=== PATIENT | male | born 1985 | race Caucasian/White ===

== ENCOUNTER 2020-02-07 14:30 | Emergency (ER) | payer OTHER, SELFPAY ==
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
[2020-02-07 14:31] VITALS: BP 165/94; PULSE 69; RESP 18; TEMP 36.8; O2SAT 100
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
[2020-02-07] MEDS: KETOROLAC (*BKC) 60 MG/2 ML VIAL IM (15:02)
[2020-02-07 15:55] VITALS: BP 137/87; PULSE 76; RESP 20; O2SAT 99
== END 2020-02-07 15:56 | disposition home or self-care (01) ==
PROVIDERS: Emergency Provider Emergency Medicine
DX: S16.1XXA Strain of muscle, fascia and tendon at neck level, initial encounter (principal); G93.5 Compression of brain; V53.5XXA Driver of pick-up truck or van injured in collision with car, pick-up truck or van in traffic accident, initial encounter
CPT/HCPCS: 70450; 72125; 96372; 99284; J1885

== ENCOUNTER 2024-12-11 20:15 | Emergency (ER) | payer BC, SELFPAY ==
--- NOTE | ~2024-12-11 | XR_ITS ---
XR hip RT 2V w AP pelvis Ordering provider: John Schilling MD History: . hip pain . Comparison: None. FINDINGS: BONES: No acute fracture or dislocation. HIP JOINT SPACES: Normal. SACROILIAC JOINT SPACES/LUMBAR SPINE: The sacroiliac joint spaces are normal. Normal visualized lower lumbar spine. PUBIC SYMPHYSIS: Normal. SOFT TISSUES: Normal. IMPRESSION: No acute osseous abnormality pelvis and right hip. Reviewed, dictated and finalized at location A.
--- OUTSIDE RECORDS SUMMARY | 2024-12-11 20:17 | XMS_ITS | Encounter Summary ---
Author Organization [facility] Address [address] [place] [address] Care Team Providers Care Spoon Maker Name Role Phone Nicky Cox DO, Frederick H Primary Care Provider Encounter Details Date Type Department Care Team (Late st Contact Info) Description 08/14/2021 Refill [facility] - [facility], [facility] [address] [place] [address], [address] [address] Tobias Saunders Jr., DO [address] [facility] [address] [place] [address] Social History Tobacco Use Types Packs/Day Years Used Date Smoking Tobacco: Former Cigarettes Q uit: 03/19/2018 E-Cigarette/Mist Inhalation Device Smokeless Tobacco: Former Chew Comments:Nicotine pouches Alcohol Use Standard Drinks/Week Comments Yes 2 (1 standard drink = 0.6 oz pur e alcohol) Sex and Gender Information Value Date Recorded Sex Assigned at Not on file Legal Sex Male 11:47 PM CDT Gender Identity Not on file Sexual Orientation Not on file COVID-19 Exposure Response Date Recorded In the last month, have you been in contact with someone who was confirmed or suspected to have Coronavirus / COVID-19? No / Unsure 07/25/2021 10:14 AM AGENCY SERVICE COORDINATOR documented as of this encounter Plan of Treatment Upcoming Encounters Date Type Department Care Team (Late st Contact Info) Description 01/13/2025 9:30 AM CDT Office Visit [facility] At [facility] [address] [facility] [facility] [address] [place] [id number] Epi Betancourt MD [address] [place] [address] documented as of this encounter Visit Diagnoses Not on filedocumented in this encounter Care Teams Spoon Maker Relationship Specialty Start Date End Date Tobias Saunders Jr., DO [address] [place] [address] PCP - General Internal Medicine 03/24/18 documented as of this encounter
--- OUTSIDE RECORDS SUMMARY | 2024-12-11 20:17 | XMS_ITS | Clinical Summary ---
Author Organization [facility] Address [address] [place] [address] Care Team Providers Care Lemon Grower Name Role Phone Nicky Cox DO, Frederick Hancock Primary Care Pr ovider Allergies No known active allergies Medications naproxen (NAPROSYN) 500 mg tablet Take 1 tablet (500 mg total) by mouth 2 (two) times a day with meals 20 tablet 12/01/2022 Active Social History Tobacco Use Types Packs/Day Years Used Date Smoking Tobacco: Never Assessed Personal Safety Answer Date Recorded Have you ever been in or are you currently in a harmful physical or emotional relationship or is someone making you feel afraid or unsafe? 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 Gender Identity Male 09/09/2024 10:17 AM CDT Sexual Orientation Straight 09/09/2024 10 :17 AM CDT Obstetrics History Last Filed Vital Signs Vital Sign Reading Time Taken Comments Blood Pressure 141/84 12/01/2022 11:31 AM CDT Pulse 73 12/01/2022 11:31 AM CDT Temperature 37.1 C (98.8 F) 12/01/2022 11:31 AM CDT Respiratory Rate 16 12/01/2022 11:31 AM CDT Oxygen Saturation 97% 12/01/2022 11:31 AM CDT Inhaled Oxygen Concentration - - Weight 136.1 kg (300 lb) 12/01/2022 9:58 AM CDT Height 170.2 cm (5' 7) 12/01/2022 9:58 AM CDT Body Mass Index 46.99 12/01/2022 9:58 AM CDT Plan of Treatment Health Maintenance Due Date Last Done Comments Depression Screening 1986 Hepatitis C Screening 1986 DTaP/Tdap/Td Vaccine (1 - Tdap) 1997 Varicella Vaccines (1 of 2 - 13+ 2-dose series) 09/21/1999 Hepatitis B Screening 2004 Regular Well Visit/Exam 18-64 2004 Covid-19 Vaccine ( season) 2024 05/11/2022, 05/10/2021, 10/22/2020, Additional history exists Influenza Vaccine (Season Ended) 2025 05/11/2022, 05/10/2021, 03/11/2019, Additional history exists HPV Vaccines Aged Out No longer eligi ble based on patient's age to complete this topic Pneumococcal vaccine <65 Aged Out No longer eligible based on patient's age to complete this topic Insurance [employer] CHOICE Care Teams Lemon Grower Relationship Specialty Start Date End Date Tobias Saunders Jr., [address] [facility] [address] [place] [address] PCP - General Internal Medicine 12/01/22
--- OUTSIDE RECORDS SUMMARY | 2024-12-11 20:17 | XMS_ITS | Clinical Summary ---
Author Organization [facility] Address [address] [place] [address] Phone Care Team Providers Care College Physics Instructor Name Role Phone Nicky Cox DO, Frederick H Primary Care Provider Allergies No known active allergies Medications sertraline (ZOLOFT) 50 mg tablet TAKE 1 & 1/2 TABLET BY MOUTH EVERY DAY FOR 90 DAYS Active buPROPion HCL (WELLBUTRIN XL) 150 mg Extended Release 24 hour tablet Take 150 mg by mouth daily in the morning. 02/13/20 24 Active tirzepatide, weight loss, (Zepbound) 5 mg/0.5 mL Pen InjectorIndica tions:Obesity, morbid, BMI 40.0-49.9 (CMS/HCC),BMI 45.0-49.9, adult (CMS/HCC) Inject 5 mg by subcutaneous injection every 7 days. 2 mL 1 4 7:02 PM CDT 03/25/20 24 Active losartan (COZAAR) 100 mg tablet Take 1 Tablet (100 mg) by mouth daily. 100 Tablet 3 05/13/20 24 Active cyclobenzaprin e (FLEXERIL) 10 mg tabletIndicati ons:Acute myofascial strain of lumbar region, initial encounter Take 1 Tablet (10 mg) by mouth daily at bedtime. 30 Tablet 11 05/13/20 24 Active amLODIPine (NORVASC) 5 mg tabletIndicati ons:HTN (hypertension) , benign TAKE 1 TABLET BY MOUTH EVERY DAY 100 Tablet 11/28/19 25 Active amLODIPine (NORVASC) 5 mg tabletIndicati ons:HTN (hypertension) , benign take 1 tablet by mouth every day 100 Tablet 2 02/18/20 24 025 Discontinued Active Problems Patient Care Coordination No te Formatting of this note migh t be different from the original. Epi Betancourt MD--Affirmative Action Officer ([facility] @ ) Problem Noted Date Diagnosed Date Binge eating disorder 03/25/2024 Hyperinsulinemia 03/24/2024 Metabolic syndrome 03/24/2024 Mild dilation of ascending aorta, 4.2 cm 022 Bicuspid aortic valve 06/11/2022 Hyperlipidemia 06/11/2022 Family history of premature CAD 06/11/2022 Prediabetes 04/13/2022 History of chiari 1 malforma tion s/p decompressive surgery (03/2020 w/ Dr Fernandez) 04/13/2022 Family history of bicuspid aortic valve 04/13/20 Family history of aortic aneurysm 04/13/2022 Morbid obesity with BMI of 40.0-44.9, adult 03/02 Family history of thoracic aortic aneurysm 03/24 RUBEN (obstructive sleep apnea) on CPAP 03/24/2018 HTN (hypertension), benign 03/24/2018 Chronic right-sided thoracic back pain 8 Resolved Problems Problem Noted Date Diagnosed Date Resolved Date Chiari I malformation 05/11/20182021 Tobacco use 03/24/2018 07/25/2021 Encounters Date Type Department Care Team Description 12/08/2024 [facility] [place] [address] [place] [address] CarawayDoraa E, ANP HTN (hypertension), benign 12/01/2024 External Device Data STL ABSTRACTION Provider, Abstract 11/27/2024 [facility] [place] [address] [place] [address] CarawayDora naranjoa E, ANP HTN (hypertension), benign 11/20/2024 External Device Data Initial Department [address] GUILLORY: [place] [address] Maksim Barajas Md 11/19/2024 External Device Data STL ABSTRACTION Provider, Abstract 11/19/2024 External Device Data STL ABSTRACTION Provider, Abstract 09/29/2024 External Device Data STL ABSTRACTION Provider, Abstract 09/22/2024 External Device Data STL ABSTRACTION Provider, Abstract 09/22/2024 External Device Data STL ABSTRACTION Provider, Abstract from Last 3 Months Immunizations Immunization Administration Dates Next Due ([employer](12 YR UP) COVID-19 VACCINE - EMERGENCY USE AUTHORIZATION, MRNA, [id number]) 30 MCG/0.3 ML IM SUSP 05/10/2021,10/22/2020,10/01/2020 INFLUENZA VACCINE QUADRIVALE NT 6 MOS UP PF IM 05/10/2021 Influenza Seasonal Unspecifi ed Formulation IM 03/11/2019,03/21/2018 Family History Medical History Relation Name Comments Hypertension Brother Remi Diaz Heart Disease Father Remi Diaz TAA, bicuspid aortic valve, 4V CABG, [place] High Cholesterol Father Remi Diaz Hypertension Father Remi Diaz Cancer Mother Gabrielle Diaz Gallbladder can cer Diabetes Mother Gabrielle Diaz Hypertension Mother Gabrielle Diaz Relation Name Status Comments Brother Remi Diaz Alive Father Remi Diaz Alive Mother Gabrielle Diaz Alive Social History Tobacco Use Types Packs/Day Years Used Date Smoking Tobacco: Former Cigarettes 0.5 2 0 03/19/2016 - 03/19/2018 E-Cigarette/Mist Inhalation Device Smokeless Tobacco: Former Chew Tobacco Cessation:Counseling Given: Not Answered Comments:Nicotine pouches Alcohol Use Standard Drinks/Week Comments Not Currently 0 (1 standard drink = 0.6 oz pur e alcohol) Feeling Safe Answer Date Recorded Are you in a relationship wi th someone who hurts you emotionally and/or physically? No 10/08/2023 Sex and Gender Information Value Date Recorded Sex Assigned at Not on file Legal Sex Male 11:47 PM CDT Gender Identity Not on file Sexual Orientation Not on file Last Filed Vital Signs Vital Sign Reading Time Taken Comments Blood Pressure 130/100 05/13/2024 9:45 AM SALES COMMISSIONS ANALYST Pulse 89 05/13/2024 9:45 AM SALES COMMISSIONS ANALYST Temperature 36.7 C (98 F) 05/13/2024 9:45 AM SALES COMMISSIONS ANALYST Respiratory Rate 17 10/09/2023 12:00 AM CDT Oxygen Saturation 99% 05/13/2024 9:45 AM SALES COMMISSIONS ANALYST Inhaled Oxygen Concentration - - Weight 118.8 kg (262 lb) 05/13/2024 9:45 AM SALES COMMISSIONS ANALYST Height 170.2 cm (5' 7) 05/13/2024 9:45 AM SALES COMMISSIONS ANALYST Body Mass Index 41.04 05/13/2024 9:45 AM SALES COMMISSIONS ANALYST Plan of Treatment Upcoming Encounters Date Type Department Care Team (Late st Contact Info) Description 01/13/2025 9:30 AM CDT Office Visit [facility] Heart and Vascular At [place] [address] [place] [address] Epi Betancourt MD [facility] [address] [facility] [address] [place] [address] Health Maintenance Due Date Last Done Comments DTAP/TDAP/TD VACCINES (1 - Tdap) 2005 HEPATITIS B VACCINES (1 of 3 - 19+ 3-dose series) 2005 INFLUENZA VACCINE (#1) 2024 , 06/05/2023, 05/10/2021, Additional history exists COVID-19 Vaccine ( season) 2024 05/10/2021, 10/22/2020, 10/01/2020 Preventative Visit- Commercial 07/01/2024 07/25/2021, 04/10/2019 Pre-Diabetes and Diabetes Screening 02/25/2027 02/26/2024, 07/25/2021 Abdominal Aortic Aneurysm (AAA) Screening Completed 10/08/2023 HPV VACCINES Aged Out No longer eligi ble based on patient's age to complete this topic Medical Devices Implanted Type [facility] Device Identifier Shelf Expiration Date Model / Serial / Lot Hemostatic Surgiflo 8ml W/Thrombin 2994 - [id number] Implanted:Qty: 1 on 03/16/2020 by Sugar Fernandez MD at [facility] Hemostatic N/A: Spine Cervical Posterior [employer] [id number] 04/30/2021 2994 / / [id number] Hemostatic Surgiflo 8ml W/Thrombin 2994 - [id number] Implanted:Qty: 1 on 03/16/2020 by Sugar Fernandez MD at [facility] Hemostatic N/A: Spine Cervical Posterior [employer] [id number] 10/28/2020 2994 / / [id number] Hemostatic Surgiflo 8ml W/Thrombin 2994 - [id number] Implanted:Qty: 1 on 03/16/2020 by Sugar Fernandez MD at [facility] Hemostatic N/A: Brain [employer] 04/30/2021 2994 / / [id number] Graft Bp Sutureurable 4x5cm Duragen [id number] - [id number] Implanted:Qty: 1 on 03/16/2020 by Sugar Fernandez MD at [facility] Tissue N/A: Brain [employer] 12/29/2023 [id number] / [id number] / [id number] [address]el Implanted:Qty: 1 on 03/16/2020 by Sugar Fernandez MD at [facility] N/A: Brain [id number] 06/30/2021 / [id number] / [id number] Procedures Procedure Name Priority Date/Time Associated Diagnosis Comments HEMOGLOBIN A1C Routine 02/26/2024 8:[address] ABDOMEN PELVIS WO CONTRAST Stat 10/08/2023 9:27 PM CDT from Last 3 Months or Most Recently Relevant to Health Maintenance Results * (ABNORMAL) HEMOGLOBIN A1C (02/26/2024 8:40 AM CDT) HEMOGLOBIN A1C 5.7(H) <5.7 % of total Hgb [facility] Comment: For someone without known diabetes, a hemoglobin A1c value between 5.7% and 6.4% is consistent with prediabetes and should be confirmed with a follow-up test. For someone with known diabetes, a value <7% indicates that their diabetes is well controlled. A1c targets should be individualized based on duration of diabetes, age, comorbid conditions, and other considerations. This assay result is consistent with an increased risk of diabetes. Currently, no consensus exists regarding use of hemoglobin A1c for diagnosis of diabetes for children. ESTIMATED AVERAGE GLUCOSE (MG/DL) 117 mg/dL Emulation and Verification EngineeringKim Brown ESTIMATED AVERAGE GLUCOSE (MMOL/L) 6.5 mmol/L [employer] Ver[employer] EngineeringKim Brown Comment: This test was performed on the Vero vickie c503 platform. Effective 09/16/23, a change in test platforms from the Regalado Rn Referral to the Vero vickie c503 may have shifted HbA1c results compared to historical results. Based on laboratory validation testing conducted at [facility], the Vero platform relative to the Regalado platform had an average increase in HbA1c value of < or = 0.3%. This difference is within accepted variability established by the National Glycohemoglobin Standardization Program. Note that not all individuals will have had a shift in their results and direct comparisons between historical and current results for testing conducted on different platforms is not recommended. Test Performed at: [place] [address] [address] [place] [address] JosetteHannahjamison Anna Guadarrama Blood 02/26/2024 8:40 AM CDT 02/26/2024 8:40 AM CDT Rose Stephens RN TRANSPORT CHEMISTRY ORDERABLES Final Result [facility] [phone] [place] [address] [address] [place] [address] * CT ABDOMEN PELVIS WO CONTRAST (10/08/2023 9:27 PM CDT) Anatomical Region Laterality Modality Abdomen Computed Tomogra phy 10/08/2023 9:32 PM CDT Impressions 10/08/2023 9:40 PM CDT IMPRESSION: 1. No acute abnormality of the abdomen or pelvis. DICTATION LOCATION: Location [address] [place] [address] Narrative 10/08/2023 9:40 PM CDT EXAMINATION: CT abdomen pelvis without contrast. HISTORY: 38-year-old male with flank pain. TECHNIQUE: CT of the abdomen and pelvis was performed without intravenous contrast according to standard protocol. The examination was performed with the adjustment of mA according to the patient size and/or the use of Iterative Reconstruction Technique. COMPARISON: None available. FINDINGS: The lung bases are clear. The heart is normal in size without pericardial effusion. The distal esophagus appears normal. Simple cyst is present in segment six of the liver. The gallbladder is decompressed. There is no biliary ductal dilatation. The pancreas, spleen, and adrenal glands appear normal. There is no hydronephrosis or nephrolithiasis. The bladder appears normal. No ureteral or bladder stone is identified. The prostate is normal in size. The appendix is normal. There is no free intraperitoneal gas. There is no bowel obstruction. There is no calcified atherosclerosis. There is no lymphadenopathy. L4 inferior endplate Schmorl's node is present. Procedure Note Laura Dhaliwal MD - 10/08/2023 EXAMINATION: CT abdomen pelvis without contrast. HISTORY: 38-year-old male with flank pain. TECHNIQUE: CT of the abdomen and pelvis was performed without intravenous contrast according to standard protocol. The examination was performed with the adjustment of mA according to the patient size and/or the use of Iterative Reconstruction Technique. COMPARISON: None available. FINDINGS: The lung bases are clear. The heart is normal in size without pericardial effusion. The distal esophagus appears normal. Simple cyst is present in segment six of the liver. The gallbladder is decompressed. There is no biliary ductal dilatation. The pancreas, spleen, and adrenal glands appear normal. There is no hydronephrosis or nephrolithiasis. The bladder appears normal. No ureteral or bladder stone is identified. The prostate is normal in size. The appendix is normal. There is no free intraperitoneal gas. There is no bowel obstruction. There is no calcified atherosclerosis. There is no lymphadenopathy. L4 inferior endplate Schmorl's node is present. IMPRESSION: 1. No acute abnormality of the abdomen or pelvis. DICTATION LOCATION: Location [address] [place] [address] ORDERABLES Final Result from Last 3 Months or Most Recently Relevant to Health Maintenance Insurance [facility] BLUE ACCESS CHOICE RX [facility] [employer] Advance Directives For more information, please contact: [phone] * Full Code (Latest Code Status on File) Date Activated Date Inactivated Comments 03/16/2020 11:28 AM 03/18/2020 7:30 PM * Full Code Date Activated Date Inactivated Comments 03/16/2020 10:23 AM 03/16/2020 11:28 AM Care Teams College Physics Instructor Relationship Specialty Start Date End Date Tobias Saunders Jr., DO [address] [facility] [address] [place] [address] PCP - General Internal Medicine 03/24/18
--- OUTSIDE RECORDS SUMMARY | 2024-12-11 20:17 | XMS_ITS | Referral Summary ---
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
--- OUTSIDE RECORDS SUMMARY | 2024-12-11 20:17 | XMS_ITS | Encounter Summary ---
Author Organization [facility] Address [address] [facility] [address] [place] [address] Care Team Providers Care Fur Blower Name Role Phone Nicky Cox DO, Frederick H Primary Care Provider Encounter Details Date Type Department Care Team (Late st Contact Info) Description 04/10/2019 Telephone [facility] [address] [place] [id number] Sobeida Kaplan, [address] [place] [address] Social History Tobacco Use Types Packs/Day Years Used Date Smoking Tobacco: Former E-Cigarette/Mist Inhalation Device Quit: 03/19/2018 Smokeless Tobacco: Former Chew Alcohol Use Standard Drinks/Week Comments Yes 0 (1 standard drink = 0.6 oz pur e alcohol) Sex and Gender Information Value Date Recorded Sex Assigned at Not on file Legal Sex Male 11:47 PM CDT Gender Identity Not on file Sexual Orientation Not on file documented as of this encounter Plan of Treatment Upcoming Encounters Date Type Department Care Team (Late st Contact Info) Description 01/13/2025 9:30 AM CDT Office Visit [facility] [address] [address] [place] [address] Epi Betancourt MD [facility] [address] [facility] [address] [place] [address] documented as of this encounter Visit Diagnoses Not on filedocumented in this encounter Care Teams Fur Blower Relationship Specialty Start Date End Date Tobias Saunders Jr., DO [address] [facility] [address] [place] [phone] PCP - General Internal Medicine 03/24/18 documented as of this encounter
--- OUTSIDE RECORDS SUMMARY | 2024-12-11 20:17 | XMS_ITS | Clinical Summary ---
Author Organization [facility] Address [address] [place] [address] Care Team Providers Care Overhead Worker Name Role Phone Nicky Cox Tobias Primary Care Provider Source Comments [facility],non-owned Affiliates and Associated Physician Practices is amultiple site organization consisting of ambulatory clinics and hospital sitesin [place], [place], [place] and [place]. This disclosure is being madepursuant to the Care Everywhere program and may not contain all information available regarding this patient. Last updated 18.[facility] Allergies No known active allergies Medications * This document contains information received from the source organization and may not represent a complete record from that organization. * Be aware that medications may not be up to date on this document. Alwaysverify current medications with the patient. sertraline (Zoloft) 50 MG tabletIndicatio ns:Major Depressive Disorder Take 1 (one) tablet by mouth once daily Reasons: Major Depressive Disorder 30 tablet Active Social History Tobacco Use Types Packs/Day Years Used Date Smoking Tobacco: Never Smokeless Tobacco: Never Tobacco Cessation:Counseling Given: Not Answered Sex and Gender Information Value Date Recorded Sex Assigned at Not on file Legal Sex Male 1:41 PM RN DISCHARGE Gender Identity Not on file Sexual Orientation Not on file Last Filed Vital Signs Vital Sign Reading Time Taken Comments Blood Pressure 154/93 09/05/2023 2:38 PM RN DISCHARGE Pulse 87 09/05/2023 2:15 PM RN DISCHARGE Temperature 36.7 C (98.1 F) 09/05/2023 2:15 PM RN DISCHARGE Respiratory Rate 18 09/05/2023 2:15 PM RN DISCHARGE Oxygen Saturation - - Inhaled Oxygen Concentration - - Weight 135.2 kg (298 lb) 09/05/2023 2:15 PM RN DISCHARGE Height 170.2 cm (5' 7) 09/05/2023 2:15 PM RN DISCHARGE Body Mass Index 46.67 09/05/2023 2:15 PM RN DISCHARGE Plan of Treatment Health Maintenance Due Date Last Done Comments HIV SCREENING 2001 HEPATITIS C SCREENING 09/15/2004 DTAP/TDAP/TD VACCINES (1 - Tdap) 2005 HEPATITIS B VACCINE (1 of 3 - 19+ 3-dose series) 2005 COVID-19 VACCINE (4 - 2023-2 5 season) 2024 05/10/2021, 10/22/2020, 10/01/2020 DEPRESSION SCREENING 07/01/2024 INFLUENZA VACCINE (Season Ended) 2025 05/10/2021, 03/11/2019, 03/21/2018 ZOSTER VACCINE (1 of 2) 2036 HIB VACCINE Aged Out No longer eligi ble based on patient's age to complete this topic HPV VACCINE Aged Out No longer eligi ble based on patient's age to complete this topic MENINGOCOCCAL (Group B) VACCINE SHARED DECISION-MAKING Aged Out No longer eligible based on patient's age to complete this topic MENINGOCOCCAL GROUPS A/C/Y/W VACCINE Aged Out No longer eligible b ased on patient's age to complete this topic PNEUMOCOCCAL VACCINE Aged Out No long er eligible based on patient's age to complete this topic Insurance SELMA SELMA Care Teams Overhead Worker Relationship Specialty Start Date End Date Tobias Saunders Jr., [address] [facility] [address] [place] [phone] PCP - General Internal Medicine 09/05/23
--- OUTSIDE RECORDS SUMMARY | 2024-12-11 20:17 | XMS_ITS | Encounter Summary ---
Author Organization [facility] Address [address] [place] [address] Care Team Providers Care Assistant Printer Floor Covering Name Role Phone Nicky Cox DO, Frederick H Primary Care Provider Reason for Visit * Reason Comments Med Refill Encounter Details Date Type Department Care Team (Late Contact Info) Description 12/08/2024 Refill [facility] [place] [address] [facility] [address] [place] [address] MelroseDoris Parks, ANP [address] [facility] [address] [place] [address] HTN (hypertension), benign Social History Tobacco Use Types Packs/Day Years [...] Description 01/13/2025 9:30 AM CDT Office Visit [facility] [address] [facility] [address] [place] [address] Epi Betancourt MD [address] [place] [address] documented as of this encounter Visit Diagnoses Diagnosis HTN (hypertension), benign Essential hypertension, benign documented in this encounter Additional Health Concerns Assessment Noted Time PHQ-9 Depression Total Score: 2 02/20/20 24 1:00 PM CDT documented as of this encounter Care Teams Assistant Printer Floor Covering Relationship Specialty Start Date End Date Tobias Saunders Jr., DO [address] [place] [address] PCP - General Internal Medicine 03/24/18 documented as of this encounter
--- OUTSIDE RECORDS SUMMARY | 2024-12-11 20:17 | XMS_ITS | Data Portability ---
Author Organization [place] [facility] Address [address] [place] [address] Assessment Encounter Date Assessment Date Assessment LastModified by Organization Details LastModified Time 10/26/2022 10/26/2022 Pt here with below diagnosis - pt here for evaluation for their condition, evaluation of their medication use, and discussion for alternative treatments. [email or web address] Not available 10/26/2022 10:08:10 11/01/2022 11/01/2022 Patient was seen today for follow up visit. We discussed patients future use of MMJ. We discussed the risks and benefits. Pt understands that we will certify patient, but the recommendation does not constitute a prescription for medical cannabis. Patient will receive an email from us with instructions on how to proceed by the evening of the next business day. [email or web address] Not available 11/01/2022 11:01:29 Plan of Treatment Reminders Order Date Submit Date Provider Last Modified By Organization Details Last Modified Time Details Appointments None record ed. Lab None record ed. Referral None record ed. Procedures None record ed. Surgeries None record ed. Imaging None record ed. Medication Orders None record ed. Patient TargetsNo targets recorded. Patient Instructions Encounter Date Encounter Id Patient Instructions Last Modified By Organization Details Last Modified Time 10/26/2022 [id number] I have discussed the risks and benefits of Medical Marijuana. Pt understands I am not prescribing this medication. I am certifying that this patient has a condition that is recognized by the state as qualifying for medical marijuana and this recommendation does not constitute a prescription for medical cannabis. Pt understands that my physician written certification form does not guarantee Medical Marijuana certification nor does it endorse the patient as needing medical marijuana. Patient understands that Medical Marijuana is a drug that the federal government has classified cannabis as a Schedule I controlled substance. Schedule 1 substances are defined, in part, as having (1) a high potential for abuse; (2) no currently accepted medical use in treatment in the [place]; and (3) a lack of accepted Safety for use under medical supervision. Federal law prohibits the manufacture, distribution and possession of cannabis even in states, which have modified their state laws to treat cannabis as a medicine. Pt also agrees that me, and the [facility] are my treating physicians and that we are in charge of treating the patient's conditions and that the patient will make a good loy effort to remain under my treatment plan and acknowledge there will be follow up visits from this date forward to monitor the patient's condition. Discussed risks and benefits of Medical Marijuana. I have spent time discussing the patients condition, pain/medical management of the patient given their debilitating condition, the risks and benefits of this medication, a history and physical, gathering old medical records to look at the disease processes being evaluated, and answering of all questions. [email or web address] Not available 10/26/2022 10:08:10 11/01/2022 [id number] I have discussed the risks and benefits of Medical Marijuana. Pt understands I am not prescribing this medication. I am certifying that this patient has a condition that is recognized by the state as qualifying for medical marijuana and this recommendation does not constitute a prescription for medical cannabis. Pt understands that my physician written certification form does not guarantee Medical Marijuana certification nor does it endorse the patient as needing medical marijuana. Patient understands that Medical Marijuana is a drug that the federal government has classified cannabis as a Schedule I controlled substance. Schedule 1 substances are defined, in part, as having (1) a high potential for abuse; (2) no currently accepted medical use in treatment in the [place]; and (3) a lack of accepted Safety for use under medical supervision. Federal law prohibits the manufacture, distribution and possession of cannabis even in states, which have modified their state laws to treat cannabis as a medicine. Pt also agrees that me, and the [facility] are my treating physicians and that we are in charge of treating the patient's conditions and that the patient will make a good loy effort to remain under my treatment plan and acknowledge there will be follow up visits from this date forward to monitor the patient's condition. Discussed risks and benefits of Medical Marijuana. I have spent time discussing the patients condition, pain/medical management of the patient given their debilitating condition, the risks and benefits of this medication, a history and physical, gathering old medical records to look at the disease processes being evaluated, and answering of all questions. [email or web address] Not available 11/01/2022 11:01:29 Reason for Referral None Reported. Medical Equipment None Reported. Medications Name Sig Start Date Stop Date Status Note LastModified by Organization Details LastModified Time losartan 50 mg tablet TAKE 1 TABLET BY MOUTH EVERY DAY active Not Available Not Available No t Available amlodipine 5 mg tablet TAKE 1 TABLET BY MOUTH EVERY DAY active Not Available Not Available No t Available methylpredni solone 4 mg tablets in a dose pack TAKE 6 TABLETS ON DAY 1 DIRECTED ON PACKAGE AND DECREASE BY 1 TAB EACH DAY FOR A TOTAL OF 6 DAYS active Not Available Not Available No t Available BinaxNOW COVID-19 Ag Self Test kit FOLLOW INSTRUCTION S INCLUDED WITH THE PACKAGE. active Not Available Not Available No t Available Vitals None Recorded Social History None recorded. Functional Status None recorded. Mental Status None recorded. Family History Nothing Reported. Medical History No medical history recorded. Past Encounters Encounter ID Performer Location Encounter Start Date Encounter Closed Date Diagnosis/Indication Diagnosis SNOMED-CT Code Diagnosis ICD10 Code Diagnosis Note [id number] ETIENNE DECKER [facility] [address] [place] [address],[facility] [address] [place] [address] 10/26/2022 10:01:42 10/26/2022 10:23:04 Chiari malformation type I 877678225 G93.5 [id number] Eddy Jack MD [facility] [address] [place] [address],[address] [place] [address] 11/01/2022 11:01:08 11/01/2022 14:09:24 Chiari malformation [id number] Q07.00 Health Concerns Section Related Observation LastModified by Organization Detai ls LastModified Time None Recorded Concern Status LastModified by Organization Details LastModified Time None Recorded Advance Directives Directive None Recorded Payers Insurance Date Sequence Insurance Name Policy Number Policy Kenndey Covered Member ID Kennedy Member ID Guarantor Name 11/12/2022 2 [place] [id number] 2 Rajan Diaz [id number] Rajan Diaz 10/30/2022 1 [facility] ([place]) [id number] 2 Rajan Diaz [id number] 28 Rajan Diaz 10/23/2022 1 [place] [id number] 2 Rajan Diaz [id number] Rajan Diaz Notes Date Note Type Note Provider Name and Address Organization Details Recorded Time 10/26/2022 text/html The patient woul d like to discuss medications, the disease, and how to handle it. Pt would also like to discuss alternative treatments to this condition. Pt was referred here for further evaluation and treatment if necessary. Patient has a diagnosis of qualifying condition - Chiari Malformation The patient would like to discuss medications, the disease, and how to handle it. Pt would also like to discuss alternative treatments to this condition. Pt was referred here for further evaluation and treatment if necessary. Patient has a diagnosis of qualifying condition - ARNOLD CHIARI ETIENNE DECKER [address], [address], [place], [address], [facility] - [facility] 10/26/2022 10:14:43 11/01/2022 text/html The patient woul d like to discuss medications, the disease, and how to handle it. Pt would also like to discuss alternative treatments to this condition. Pt was referred here for further evaluation and treatment if necessary. Patient has a diagnosis of qualifying condition - Arnold Chiari malformation. Pt here for 2nd visit to discuss condition and develop a relationship. We discussed the above and future use of medical marijuana. CARLOS FOX PA-C [address], [address], [place], [address], [place] [facility] 11/01/2022 11:02:02
[2024-12-11 20:30] VITALS: BP 118/76; PULSE 82; RESP 16; TEMP 36.9; O2SAT 99
--- NOTE | 2024-12-11 20:58 | ED_ITS ---
HPI - Extremity Problem General Chief complaint: Extremity Problem,Nontraumatic Stated complaint: hip pain Time Seen by Provider: 12/11/24 20:35 History of Present Illness HPI Narrative: 39-year-old male with no pertinent past medical history presenting with bilateral hip pain worsen is right-sided hip and posterior area near his sacroiliac joint. Radiates towards his groin. Denies any testicular pain or swelling, no numbness or tingling, no incontinence. No known injury. No weak ness or difficulty ambulating. Has not taken anything besides Tylenol for symptom control. Does not recall any traumatic injuries or lifting injuries. No direct hits or car accidents or any kind of potential inciting events to his knowledge. He reports sometimes pain radiates down his posterior thigh but does not go past the knee. Related Data Allergies Allergy/AdvReac Type Severity Reaction Status Date / Time No Known Allergies Allergy Unverified 02/07/20 14:35 Review of Systems Review of Systems: As reviewed above in HPI [facility] Past Medical History Medical History Chiari malformation Social History Social History Smoking status: Never smoker Gender identity (if verbalized by the patient): Male Exam Narrative: GENERAL: [Well-appearing, well-nourished, and in no acute distress.] HEAD: [Normocephalic, atraumatic.] EYES: [PERRLA and EOMI.] ENT: Nares clear, no rhinorrhea or epistaxis. Mucous membranes moist. NECK: Supple. CHEST: [Clear to auscultation. No respiratory distress.] HEART: [Regular rate and rhythm]. No murmur heard. [Normal peripheral pulses.] ABDOMEN: [Soft, nondistended], [nontender], [No rigidity or guarding] EXTREMITIES: Full range of motion of bilateral lower extremities, no edema. Full flexion and extension of the hip joint, tenderness reproducible on the sacroiliac joint on the right side posteriorly but not on the left side. No tenderness along the hip joint or in the thigh/knee. Extension of the lower extremity on the right side reproduces the pain but flex and does not. Full strength 5/5 bilaterally. SKIN: Warm, dry, no rash. NEURO: [No focal deficits]. Alert and oriented [x3.] Ambulatory in the examination room without difficulty. No incontinence. No weakness or sensation deficits. PSYCH: [Normal mood and affect.] Course Vital Signs Vital signs: Vital Signs Temperature 36.9 C 12/11/24 20:30 Pulse Rate 82 12/11/24 20:30 Respiratory Rate 16 12/11/24 20:30 Blood Pressure 118/76 12/11/24 20:30 Pulse Oximetry 99 12/11/24 20:30 Oxygen Delivery Room Air 12/11/24 20:30 Temperature 36.9 C 12/11/24 20:30 Pulse Rate 82 12/11/24 20:30 Respiratory Rate 16 12/11/24 20:30 Blood Pressure 118/76 12/11/24 20:30 Pulse Oximetry 99 12/11/24 20:30 Oxygen Delivery Room Air 12/11/24 20:30 MDM - Extremity (Nontraumatic) MDM Narrative Medical decision making narrative: 39-year-old male presenting with atraumatic bilateral hip pain worse on the right side. Examination is reassuring he is otherwise well-appearing with normal vital signs. Full range of motion of bilateral lower extremities, no edema. Full flexion and extension of the hip joint, tenderness reproducible on the sacroiliac joint on the right side posteriorly but not on the left side. No tenderness along the hip joint or in the thigh/knee. Extension of the lower extremity on the right side reproduces the pain but flex and does not. Full strength 5/5 bilaterally. Suspect musculoskeletal etiology to patient's complaints such as potential sacroiliitis, sciatica, lumbago. Low suspicion occult fracture or dislocation. X-rays of the hip and multiple views were obtained on the right side specifically. He was given Medrol and ibuprofen for analgesia and will be discharged home with PCP follow-up after imaging. X-ray showed no acute osseous abnormalities. Patient's sent home on Medrol Dosepak for symptom control and encouraged to follow-up with his primary care provider. Discharge Plan Discharge Clinical Impression: Bilateral hip pain Patient Disposition: Home Condition: Stable Instructions: Antibiotic Form, Musculoskeletal Pain (ED), Hip Pain (ED) Additional Instructions: No acute bony abnormalities such as a fracture or dislocation. No significant signs of inflammation but your symptoms could be a combination of inflammation versus impingement verses sciatica type symptoms. We will send you home with a steroid pack to help with symptoms of the above. Follow-up with regular primary doctor. Return with any emergent concerns. Patient Language: South African Prescriptions: New acetaminophen [Tylenol Extra Strength] 500 mg tablet 1,000 mg PO TID PRN (Reason: pain) Qty: 30 0RF methylprednisolone [Medrol (Abimael)] 4 mg tablets,dose pack See Rx Instructions .ROUTE .COMPLEX Qty: 21 0RF Rx Instructions: orally per package directions No Action cyclobenzaprine 10 mg tablet 10 mg PO TID PRN (Reason: muscle spasm) Qty: 20 0RF Follow-up/Referrals: UNKNOWN,DOCTOR [Primary Care Provider] - Time of Disposition: 22:25
--- OUTSIDE RECORDS SUMMARY | 2024-12-11 21:11 | XMS_ITS | Clinical Summary ---
Author Organization [facility] Address [address] [place] [address] Phone Care Team Providers Care Senior Net Web Developer Name Role Phone Nicky Cox DO, Frederick [...] migh t be different from the original. Eip Betancourt MD--Training And Development Rep ([facility] @ ) [...] Date Type Department Care Team Description 12/08/2024 [facility] [place] [address] [place] [address] FlintstoneDoraa E, ANP HTN (hypertension), benign 12/01/2024 External Device Data STL ABSTRACTION Provider, Abstract 11/27/2024 [facility] [place] [address] [place] [address] FlintstoneDora naranjoa E, ANP HTN (hypertension), benign 11/20/2024 External Device Data Initial Department [address] GUILLORY: [place] [address] Maksim Barajas Md 11/19/2024 External Device Data STL ABSTRACTION Provider, Abstract 11/19/2024 External Device Data STL ABSTRACTION Provider, Abstract 09/29/2024 External Device Data STL ABSTRACTION Provider, Abstract 09/22/2024 External Device Data STL ABSTRACTION Provider, Abstract 09/22/2024 External Device Data STL ABSTRACTION Provider, Abstract from Last 3 Months Immunizations Immunization Administration Dates Next Due ([employer])(12 YR UP) COVID-19 VACCINE - EMERGENCY USE AUTHORIZATION, MRNA, [id number]) 30 MCG/0.3 ML IM SUSP 05/10/2021,10/22/2020,10/01/2020 INFLUENZA VACCINE QUADRIVALE NT 6 MOS UP PF IM 05/10/2021 Influenza Seasonal Unspecifi ed Formulation IM 03/11/2019,03/21/2018 Family History Medical History Relation Name Comments Hypertension Brother Remi Diaz Heart Disease Father Remi Diaz TAA, bicuspid aortic valve, 4V CABG, [place] High Cholesterol Father Remi Diaz Hypertension Father [...] Comments Blood Pressure 130/100 05/13/2024 9:45 AM BEHAVIORAL THERAPIST Pulse 89 05/13/2024 9:45 AM BEHAVIORAL THERAPIST Temperature 36.7 C (98 F) 05/13/2024 9:45 AM BEHAVIORAL THERAPIST Respiratory Rate 17 10/09/2023 12:00 AM CDT Oxygen Saturation 99% 05/13/2024 9:45 AM BEHAVIORAL THERAPIST Inhaled Oxygen Concentration - - Weight 118.8 kg (262 lb) 05/13/2024 9:45 AM BEHAVIORAL THERAPIST Height 170.2 cm (5' 7) 05/13/2024 9:45 AM BEHAVIORAL THERAPIST Body Mass Index 41.04 05/13/2024 9:45 AM BEHAVIORAL THERAPIST Plan of Treatment Upcoming Encounters Date Type Department Care Team (Late st Contact Info) Description 01/13/2025 9:30 AM CDT Office Visit [facility] [place] [address] [place] [address] Epi Betancourt MD [facility] [address] [facility] [address] [place] [address] Health Maintenance Due Date Last [...] this topic Medical Devices Implanted Type Area Marine Photographer Device Identifier Shelf Expiration Date Model / Serial / Lot Hemostatic Surgiflo 8ml W/Thrombin 2994 - [id number] Implanted:Qty: 1 on 03/16/2020 by Sugar Fernandez MD at [facility] Hemostatic N/A: Spine Cervical Posterior [employer] [id number] 04/30/2021 2994 / / [id number] Hemostatic Surgiflo 8ml W/Thrombin 2994 - [id number] Implanted:Qty: 1 on 03/16/2020 by Sugar Fernandez MD at [facility] Hemostatic N/A: Spine Cervical Posterior [employer] [id number] 10/28/2020 2994 / / [id number] Hemostatic Surgiflo 8ml W/Thrombin 2994 - [id number] Implanted:Qty: 1 on 03/16/2020 by Sugar Fernandez MD at [facility] Hemostatic N/A: Brain [employer] 04/30/2021 2994 / / [id number] Graft Bp Sutureurable 4x5cm Duragen [id number] - [id number] Implanted:Qty: 1 on 03/16/2020 by Sugar Fernandez MD at [facility] Tissue N/A: Brain [employer] 12/29/2023 [id number] / [id number] / [id number] Tisseel Implanted:Qty: 1 on 03/16/2020 by Sugar Fernandez MD at [facility] N/A: Brain [id number] 06/30/2021 / [id number] / [id number] Procedures Procedure Name Priority Date/Time Associated Diagnosis Comments HEMOGLOBIN A1C Routine 02/26/2024 8:[address] ABDOMEN PELVIS WO CONTRAST Stat 10/08/2023 9:27 PM CDT from Last 3 Months or Most Recently Relevant to Health Maintenance Results * (ABNORMAL) HEMOGLOBIN A1C (02/26/2024 8:40 AM CDT) HEMOGLOBIN A1C 5.7(H) <5.7 % of total Hgb [facility] Comment: For someone without known diabetes, a [...] children. ESTIMATED AVERAGE GLUCOSE (MG/DL) 117 mg/dL [facility] Forward[facility] Brown ESTIMATED AVERAGE GLUCOSE (MMOL/L) 6.5 mmol/L [facility] Comment: This test was performed on the Vero vickie c503 platform. Effective 09/16/23, a change in test platforms from the Regalado Flight Manager to the Vero vickie c503 may have shifted HbA1c results compared to historical results. Based on laboratory validation testing conducted at [facility], the Vero platform relative to the Regalado [...] platforms is not recommended. Test Performed at: [place] [address] [place] [address] JosetteHannahjamison Anna Guadarrama Blood 02/26/2024 8:40 AM CDT 02/26/2024 8:40 AM CDT Rose Stephens SPECIAL EDUCATION TUTOR CHEMISTRY ORDERABLES Final Result [facility] [phone] [place] [address] [place] [phone] * CT ABDOMEN PELVIS WO CONTRAST (10/08/2023 9:27 PM CDT) Anatomical Region Laterality Modality Abdomen Computed Tomogra phy 10/08/2023 9:32 PM CDT Impressions 10/08/2023 9:40 PM CDT IMPRESSION: 1. No acute abnormality of the abdomen or pelvis. DICTATION LOCATION: Location [address] [place] [address] Narrative 10/08/2023 9:40 PM CDT EXAMINATION: CT [...] the abdomen or pelvis. DICTATION LOCATION: Location [address] [place] [address] ORDERABLES Final Result from Last 3 Months or Most Recently Relevant to Health Maintenance Insurance [facility] BLUE ACCESS CHOICE RX [facility] [employer] Advance Directives For more information, please contact: [phone] * Full Code (Latest Code Status on File) Date Activated Date Inactivated Comments 03/16/2020 11:28 AM 03/18/2020 7:30 PM * Full Code Date Activated Date Inactivated Comments 03/16/2020 10:23 AM 03/16/2020 11:28 AM Care Teams Senior Net Web Developer Relationship Specialty Start Date End Date Tobias Saunders Jr., DO [address] [facility] [address] [place] [address] PCP - General Internal Medicine 03/24/18
--- OUTSIDE RECORDS SUMMARY | 2024-12-11 21:11 | XMS_ITS | Encounter Summary ---
Author Organization [facility] Address [address] [place] [address] Care Team Providers Care Mig Tig Welder Name Role Phone Nicky Cox DO, Frederick H Primary Care Provider Encounter Details Date Type Department Care Team (Late st Contact Info) Description 08/14/2021 Refill [facility], [facility] [address] [place] [address], [address] [address] Tobias Saunders Jr., DO [address] [facility] [address] [place] [address] Social History Tobacco Use Types [...] COVID-19? No / Unsure 07/25/2021 10:14 AM TOOL PROCUREMENT COORDINATOR documented as of this encounter Plan of Treatment Upcoming Encounters Date Type Department Care Team (Late st Contact Info) Description 01/13/2025 9:30 AM CDT Office Visit [facility] [address] [address] [place] [address] Epi Betancourt MD [address] [place] [address] documented as of this encounter Visit Diagnoses Not on filedocumented in this encounter Care Teams Mig Tig Welder Relationship Specialty Start Date End Date Tobias Saunders Jr., DO [address] [place] [address] PCP - General Internal Medicine 03/24/18 documented as of this encounter
--- OUTSIDE RECORDS SUMMARY | 2024-12-11 21:11 | XMS_ITS | Clinical Summary ---
Author Organization [facility] [employer] Address [address] [address] Care Team Providers Care Production Control Scheduler Name Role Phone Nicky Cox Tobias Primary Care Provider Source Comments [facility] [employer],non-owned Affiliates and Associated Physician Practices is amultiple site organization consisting of ambulatory clinics and hospital sitesin [place], [place], [place] and [place]. This disclosure is being madepursuant to the Care Everywhere program and may not contain all information available regarding this patient. Last updated 18.[facility] [employer] Allergies No known active allergies Medications * [...] on file Legal Sex Male 1:41 PM TRAINING PROJECT MANAGER Gender Identity Not on file Sexual Orientation Not on file Last Filed Vital Signs Vital Sign Reading Time Taken Comments Blood Pressure 154/93 09/05/2023 2:38 PM TRAINING PROJECT MANAGER Pulse 87 09/05/2023 2:15 PM TRAINING PROJECT MANAGER Temperature 36.7 C (98.1 F) 09/05/2023 2:15 PM TRAINING PROJECT MANAGER Respiratory Rate 18 09/05/2023 2:15 PM TRAINING PROJECT MANAGER Oxygen Saturation - - Inhaled Oxygen Concentration - - Weight 135.2 kg (298 lb) 09/05/2023 2:15 PM TRAINING PROJECT MANAGER Height 170.2 cm (5' 7) 09/05/2023 2:15 PM TRAINING PROJECT MANAGER Body Mass Index 46.67 09/05/2023 2:15 PM TRAINING PROJECT MANAGER Plan of Treatment Health Maintenance Due Date [...] this topic Insurance SELMA SELMA Care Teams Production Control Scheduler Relationship Specialty Start Date End Date Tobias Saunders Jr., [address] [facility] [address] [place] [id number] PCP - General Internal Medicine 09/05/23
--- OUTSIDE RECORDS SUMMARY | 2024-12-11 21:11 | XMS_ITS | Encounter Summary ---
Author Organization [facility] Address [address] [place] [address] Care Team Providers Care Carrier Packer Name Role Phone Nicky Cox DO, Frederick H Primary Care Provider Reason for Visit * Reason Comments Med Refill Encounter Details Date Type Department Care Team (Late Contact Info) Description 12/08/[address] [facility] Primary [facility] [place] [address] [facility] [address] [place] [address] LagroDoris Parks, ANP [address] [facility] [address] [place] [address] HTN (hypertension), benign Social History [...] Description 01/13/2025 9:30 AM CDT Office Visit [facility] At [facility] [address] [facility] [address] [place] [address] Epi Betancourt MD [address] [place] [address] documented as of this encounter Visit Diagnoses Diagnosis HTN (hypertension), benign Essential hypertension, benign documented in this encounter Additional Health Concerns Assessment Noted Time PHQ-9 Depression Total Score: 2 02/20/20 24 1:00 PM CDT documented as of this encounter Care Teams Carrier Packer Relationship Specialty Start Date End Date Tobias Saunders Jr., DO [address] [place] [address] PCP - General Internal Medicine 03/24/18 documented as of this encounter
--- OUTSIDE RECORDS SUMMARY | 2024-12-11 21:11 | XMS_ITS | Encounter Summary ---
Author Organization [facility] Address [address] [facility] [address] [place] [address] Care Team Providers Care Complex Care Nurse Name Role Phone Nicky Cox DO, Frederick H Primary Care Provider Encounter Details Date Type Department Care Team (Late st Contact Info) Description 04/10/2019 Telephone [facility] [address] [place] [id number] Sobeida Kaplan, [address] [place] [address] Social History Tobacco Use Types Packs/Day Years [...] Description 01/13/2025 9:30 AM CDT Office Visit [facility] At [facility] [address] [facility] [address] [place] [address] Epi Betancourt MD [facility] [address] [facility] [address] [place] [address] documented as of this encounter Visit Diagnoses Not on filedocumented in this encounter Care Teams Complex Care Nurse Relationship Specialty Start Date End Date Tobias Saunders Jr., DO [address] [facility] [address] [place] [address] PCP - General Internal Medicine 03/24/18 documented as of this encounter
--- OUTSIDE RECORDS SUMMARY | 2024-12-11 21:11 | XMS_ITS | Clinical Summary ---
Author Organization [facility] Address [address] [place] [address] Care Team Providers Care Feed In Worker Name Role Phone Nicky Cox DO, Frederick [...] on file Legal Sex Male 11:24 AM MENTAL HEALTH CONSULTANT Gender Identity Male 09/09/2024 10:17 AM CDT [...] patient's age to complete this topic Insurance [employer] CHOICE Care Teams Feed In Worker Relationship Specialty Start Date End Date Tobias Saunders Jr., [address] [facility] [address] [place] [address] PCP - General Internal Medicine 12/01/22
--- OUTSIDE RECORDS SUMMARY | 2024-12-11 21:11 | XMS_ITS | Referral Summary ---
Author Organization [facility] Address [address] [place] [address] Care Team Providers Care Cash Management Clerk Name Role Phone Nicky Cox DO, Frederick [...] on file Legal Sex Male 11:24 AM PLANT RELIABILITY ENGINEER Gender Identity Male 09/09/2024 10:17 AM CDT [...] Plan of Treatment Not on file Insurance ANTHEXFO ACCESS CHOICE ANTHEXFO ACCESS CHOICE Care Teams Cash Management Clerk Relationship Specialty Start Date End Date Tobias Saunders Jr., [address] [facility] [address] [place] [address] PCP - General Internal Medicine 12/01/22
[2024-12-11] MEDS: methylPREDNISolone 4 MG TABLET PO (21:12)
[2024-12-11] MEDS: IBUPROFEN 400 MG TABLET 800 MG PO (21:12)
[2024-12-11 22:37] VITALS: BP 114/80; PULSE 81; RESP 18; O2SAT 99
== END 2024-12-11 22:39 | disposition home or self-care (01) ==
PROVIDERS: Emergency Provider Student in an Organized Health Care Education/Training Program
DX: M25.552 Pain in left hip (principal); M25.551 Pain in right hip
CPT/HCPCS: 73502; 99283; A9270